=== PATIENT | female | born 2000 | race Caucasian/White ===

== ENCOUNTER 2019-12-22 12:15 | Emergency (ER) | payer OTHER, SELFPAY ==
--- NOTE | ~2019-12-22 | XR_ITS ---
EXAMINATION: XR wrist LT min 3V EXAM DATE: 12/22/2019 13:14 INDICATION: Initial encounter following injury, with pain of the left wrist. TECHNIQUE: Left wrist frontal, frontal with ulnar deviation, oblique and lateral projections obtained and reviewed. There is no prior study for comparison. FINDINGS: Left wrist scapholunate joint space is maintained. There is acute nondisplaced fracture of the distal right radial metaphysis seen along the dorsal aspect without displacement, closed posttra umatic finding. There is overlying soft tissue swelling. This finding has been indicated, marked on t he examination for review, clinical correlation. IMPRESSION: Acute left radial distal metaphyseal fracture. Reviewed, dictated and finalized at location B.
[2019-12-22 12:24] VITALS: BP 134/100; PULSE 110; RESP 18; TEMP 36.8; O2SAT 100
--- NOTE | 2019-12-22 14:59 | ED.UPPEXIN ---
HPI - Extremity Injury (Upper) General Chief Complaint: Extremity Injury, Upper Stated Complaint: fall/wrist injury Time Seen by Provider: 12/22/19 13:18 Source: patient Mode of arrival: ambulatory Limitations: no limitations History of Present Illness HPI narrative: Patient presents with chief complaint of left wrist pain after slipping and falling on milk. Patient states she is not sure exactly how she landed on the wrist. Patient states she has pain with flexion extension of the wrist. Patient denies pain to any other areas. Patient denies head impact or loss of consciousness. Patient denies prior fractures. Patient has a history of epilepsy but denies having any seizures. Related Data Home Medications Medication Instructions Recorded Confirmed cannabidiol [Epidiolex] 12/22/19 carbamazepine mg PO 12/22/19 clonazepam 0.5 mg PO HS 12/22/19 clorazepate dipotassium 12/22/19 lamotrigine 12/22/19 Allergies Allergy/AdvReac Type Severity Reaction Status Date / Time amoxicillin Allergy Intermediate Unknown Verified 12/22/19 12:27 Penicillins Allergy Intermediate Hives / Verified 12/22/19 12:27 Red Face clarithromycin Allergy Unknown HIVES, Verified 12/22/19 12:27 FACIAL SWELLING, WHEEZING fexofenadine [From Yee] AdvReac Intermediate Agitated Verified 12/22/19 12:38 SEASONAL Allergy Mild Unknown Uncoded 12/22/19 12:27 Review of Systems Review of Systems: Narrative: CONSTITUTIONAL: Denies fever, chills, or sweats. EYES: Denies visual changes, redness, or discharge. ENT: Denies rhinorrhea, congestion, sore throat, or otalgia. CARDIOVASCULAR: Denies chest pain, palpitations, or edema. RESPIRATORY: Denies cough or dyspnea. GASTROINTESTINAL: Denies abdominal pain, nausea, vomiting, or diarrhea. GENITOURINARY: Denies dysuria or hematuria. SKIN: Denies rash or itching. MUSCULOSKELETAL: Reports left wrist pain denies back pain, joint pain, or myalgia. NEUROLOGIC: Denies headache, numbness, dizziness, or weakness. PSYCHIATRIC: Denies anxiety or depression. [facility] Past Medical History Medical History (Updated 12/22/19 @ 15:34 by Yelitza Pearce PA-C) Epilepsy Social History Social History (Updated 12/22/19 @ 15:05 by Yelitza Pearce PA-C) Substance use: never Gender identity (if verbalized by the patient): Female Exam Narrative: Exam Narrative: GENERAL: Well-appearing, well-nourished, and in no acute distress. HEAD: Normocephalic, atraumatic. EYES: PERRLA and EOMI. NECK: Supple. No adenopathy or masses. Range of motion intact. CHEST:No respiratory distress. ABDOMEN: Soft, nontender, nondistended, normal active bowel sounds. EXTREMITIES: Edema noted with tenderness to radial aspect of left wrist. No open wounds. Pain with flexion and extension of wrist. Cap refill intact distally with ROM intact distally. SKIN: Warm, dry, no rash. NEURO: No focal deficits. Alert and oriented x3. PSYCH: Normal mood and affect. Course Vital Signs Vital signs: Vital Signs Temperature 98.2 F 12/22/19 12:24 Pulse Rate 110 H 12/22/19 12:24 Respiratory Rate 18 12/22/19 12:24 Blood Pressure 134/100 H 12/22/19 12:24 Pulse Oximetry 100 12/22/19 12:24 Temperature 98.2 F 12/22/19 12:24 Pulse Rate 92 12/22/19 15:38 Respiratory Rate 18 12/22/19 15:38 Blood Pressure 128/89 12/22/19 15:38 Pulse Oximetry 93 12/22/19 15:38 Procedures Orthopedic Splinting/Casting Injury #1: Side: left Upper Extremity Injury Location: wrist Upper Extremity Immobilizer: volar splint OCL: short arm Pre-Procedure Neuro Vascular Exam: normal Post-Procedure Neuro Vascular Exam: normal Other Orthopedic Equipment: other (sling) MDM - Extremity Injury (Upper) MDM Narrative Medical decision making narrative: Consult with engine specialist Dr. Hogue who states patient can be placed in a volar short arm and follow-up in the office. Discussed with
[2019-12-22 15:38] VITALS: BP 128/89; PULSE 92; RESP 18; O2SAT 93
== END 2019-12-22 15:43 | disposition home or self-care (01) ==
PROVIDERS: Emergency Provider Emergency Medicine; PCP Nurse Practitioner Family
DX: S59.292A Other physeal fracture of lower end of radius, left arm, initial encounter for closed fracture (principal); G40.909 Epilepsy, unspecified, not intractable, without status epilepticus; W01.0XXA Fall on same level from slipping, tripping and stumbling without subsequent striking against object, initial encounter
CPT/HCPCS: 29125; 73110; 99284; A4565

== ENCOUNTER 2022-09-16 12:46 | Emergency (ER) | payer BC, SELFPAY ==
--- NOTE | ~2022-09-16 | XR_ITS ---
XR foot LT min 3V DATE: 09/16/2022 13:34 INDICATION: Patient fell down steps and rolled foot this morning. Lateral foot pain TECHNIQUE: 4 views COMPARISON: None FINDINGS: No fracture or dislocation, periosteal reaction or bone destruction. IMPRESSION: No fracture or dislocation Reviewed, dictated and finalized at location B. K OUT HAND IMPRESSION: No fracture or dislocation
[2022-09-16 13:26] VITALS: BP 136/72; PULSE 107; RESP 18; TEMP 36.4; O2SAT 100
--- NOTE | 2022-09-16 14:26 | ED.LOWEXIN ---
HPI - Extremity Injury (Lower) General Chief Complaint: Extremity Injury, Lower Stated Complaint: lt ankle injury Time Seen by Provider: 09/16/22 14:26 Source: patient Mode of arrival: ambulatory Limitations: no limitations History of Present Illness HPI Narrative: 22-year-old female presents with pain to left foot. States that she was stepping down from stairs this morning and rolled left foot outward. Arrived using crutches from home. Ambulatory with slight limp. Wants to make sure she does not have fracture and also needs work note. All systems reviewed and negative except as noted above Related Data Home Medications Medication Instructions Recorded Confirmed carbamazepine 200 mg 200 mg PO DAILY 12/22/19 09/16/22 tablet,extended release,12 hr Allergies Allergy/AdvReac Type Severity Reaction Status Date / Time amoxicillin Allergy Intermediate Unknown Verified 09/16/22 14:07 Penicillins Allergy Intermediate Hives / Verified 09/16/22 14:07 Red Face clarithromycin Allergy Unknown HIVES, Verified 09/16/22 14:07 FACIAL SWELLING, WHEEZING fexofenadine [From Yee] AdvReac Intermediate Agitated Verified 09/16/22 14:07 SEASONAL Allergy Mild Unknown Uncoded 09/16/22 14:07 Review of Systems Review of Systems: CONSTITUTIONAL: Denies fever, chills, or sweats. EYES: Denies visual changes, redness, or discharge. ENT: Denies rhinorrhea, congestion, sore throat, or otalgia. CARDIOVASCULAR: Denies chest pain, palpitations, or edema. RESPIRATORY: Denies cough or dyspnea. GASTROINTESTINAL: Denies abdominal pain, nausea, vomiting, or diarrhea. GENITOURINARY: Denies dysuria or hematuria. SKIN: Denies rash or itching. MUSCULOSKELETAL: Denies back pain, joint pain, or myalgia. reports pain to left foot. NEUROLOGIC: Denies headache, numbness, or weakness. PSYCHIATRIC: Denies anxiety or depression. All other systems reviewed are negative, except as documented in HPI. 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 Gender identity (if verbalized by the patient): Female Spiritual care concerns: No Comments At time of signature, agree with nursing past medical, surgical, social and family history. There is no relevant family history pertinent to the presenting complaint. Exam Narrative: GENERAL: This is a well-nourished, well-developed patient, in no apparent distress. HEAD: normocephalic, atraumatic. EYES: PERRL. Sclera clear/white. Vision is grossly intact. EARS: External ears normal NOSE: External nose normal NECK: Neck supple, non-tender without lymphadenopathy, masses or thyromegaly. CARDIOVASCULAR: Regular rate and rhythm without murmurs, gallops, or rubs. RESPIRATORY: Clear to auscultation. Breath sounds equal bilaterally. No wheezes, rales, or rhonchi. SKIN: warm, Dry, intact with no suspicious lesions or rash, good texture and turgor. NEURO: awake, alert, and oriented to person, place and time. There were no obvious focal neurologic abnormalities. EXTREMITIES: tenderness to left dorsal aspect, proximal 3rd 4th 5th metatarsals. Mild swelling noted. No deformity noted. Dorsalis pedis pulse 2 +. Range of motion in tact pain Course Course Level of Care: Express Care Visit Vital Signs Vital signs: Vital Signs Temperature 36.4 C L 09/16/22 13:26 Pulse Rate 107 H 09/16/22 13:26 Respiratory Rate 18 09/16/22 13:26 Blood Pressure 136/72 09/16/22 13:26 Pulse Oximetry 100 09/16/22 13:26 Oxygen Deliv
== END 2022-09-16 14:40 | disposition home or self-care (01) ==
PROVIDERS: Emergency Provider Nurse Practitioner Family; PCP Nurse Practitioner Family
DX: S93.602A Unspecified sprain of left foot, initial encounter (principal); X50.0XXA Overexertion from strenuous movement or load, initial encounter
CPT/HCPCS: 73630; 99213; G0463

== ENCOUNTER 2022-11-10 11:34 | Emergency (ER) | payer BC, SELFPAY ==
[2022-11-10 11:57] VITALS: BP 146/84; PULSE 120; RESP 18; TEMP 36.8; O2SAT 100
--- NOTE | 2022-11-10 12:41 | ED.URI ---
HPI - URI/Sore Throat General Chief Complaint: Upper Respiratory Infection Stated Complaint: cough,sorethroat,congestion Time Seen by Provider: 11/10/22 11:47 Source: patient Mode of arrival: ambulatory Limitations: no limitations History of Present Illness HPI Narrative: 22-year-old female presents to [facility] with complaints of dry cough, runny nose, congestion, sore throat and low-grade fevers for the past 3 days. 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 Patient has been taking [id number] Delsym, Benadryl and Tylenol with minimal relief. Patient is a nonsmoker. Patient denies recent travel. Patient denies shortness of breath, wheezing, nausea, vomiting or diarrhea. MD elicited complaint: cough, sore throat, rhinorrhea and nasal congestion Onset (ago): day(s) (3) Able to tolerate fluids by mouth: Yes Treatments prior to arrival: cold medicine Related Data Home Medications Medication Instructions Recorded Confirmed carbamazepine 200 mg 200 mg PO DAILY 12/22/19 11/10/22 tablet,extended release,12 hr cannabidiol 100 mg/mL oral 100 mg PO DAILY 09/16/22 11/10/22 solution (Epidiolex) Allergies Allergy/AdvReac Type Severity Reaction Status Date / Time amoxicillin Allergy Intermediate Unknown Verified 09/16/22 14:07 Penicillins Allergy Intermediate Hives / Verified 09/16/22 14:07 Red Face clarithromycin Allergy Unknown HIVES, Verified 09/16/22 14:07 FACIAL SWELLING, WHEEZING fexofenadine [From Yee] AdvReac Intermediate Agitated Verified 09/16/22 14:07 SEASONAL Allergy Mild Unknown Uncoded 09/16/22 14:07 Review of Systems Constitutional: Constitutional: Reports chills, Denies fatigue, Reports fever(s) and Denies weakness ENT: Denies dizziness, Denies epistaxis, Reports nasal congestion and Reports sore throat Respiratory: Respiratory: Reports cough, Denies dyspnea and Denies wheezing Gastrointestinal: Gastrointestinal: Denies diarrhea, Denies nausea and Denies vomiting Musculoskeletal: Musculoskeletal: Denies arthralgias and Denies joint swelling Integumentary/Breasts: Skin/Breast: Denies rash PMFSH Past Medical History Medical History (Updated 11/10/22 @ 12:44 by Keysha Richmond APRN) Distal radius fracture, left (12/22/19) Epilepsy Psoriasis Family History Family History Other Diabetes mellitus Social History Social History Smoking status: Never smoker Alcohol intake: never Substance use: never Living arrangements: with family Occupation/Education: occupation 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 Gender identity (if verbalized by the patient): Female Spiritual care concerns: No Comments At time of signature, I agree with nursing past medical, surgical, social and family history. There is no relevant family history pertinent to the presenting complaint. Exam Const: General: healthy appearing and no acute distress Nutritional Appearance: well nourished Orientation/consciousness: patient oriented x3 Limitations: no limitations HENMT: Head: normal to inspection Ears: external ears normal and EAC's normal Face/Nose/Sinus: Normal external nose present and Normal nares present Face and sinus: normal facial exam Mouth: Yes Normal oral and palatal mucosa present and Yes moist mucous membranes Throat: posterior oropharynx normal and uvula midline Eyes: Conjunctivae: conjunctivae normal Neck: Neck: normal visual inspection Resp: Effort & Inspection: normal respiratory effort, not labored and not tachypneic Auscultation: no crackles, no rales and no rhonchi Cardio: Rate: regular rate Rhythm: regular rhythm Heart sounds: no murmurs Skin: General skin exam: normal color Rashes: no rashes Neuro: General: patient oriented x3 S
== END 2022-11-10 12:58 | disposition home or self-care (01) ==
PROVIDERS: Emergency Provider Nurse Practitioner Family; PCP Nurse Practitioner Family
DX: B34.9 Viral infection, unspecified (principal); L40.9 Psoriasis, unspecified; G40.909 Epilepsy, unspecified, not intractable, without status epilepticus
CPT/HCPCS: 87081; 87804; 87880; 99213; G0463

== ENCOUNTER 2022-11-16 09:02 | Emergency (ER) | payer BC, SELFPAY ==
[2022-11-16 09:28] VITALS: BP 140/68; PULSE 114; RESP 18; TEMP 37.2; O2SAT 100
--- NOTE | 2022-11-16 09:51 | ED.GENADULT ---
HPI - General Adult General Chief complaint: Upper Respiratory Infection Stated complaint: sorethroat,fever Time Seen by Provider: 11/16/22 09:51 Source: patient Mode of arrival: ambulatory Limitations: no limitations History of Present Illness HPI narrative: 22-year-old female patient presents to the [facility] with complaints of sore throat, fever, body aches and chills that started last night. Patient does have a history of epilepsy and thinks she might have had a seizure last night denies hitting her head. denies any cough, chest pain shortness of breath. Patient states she has had some congestion. Denies any abdominal pain, nausea, vomiting or diarrhea. Related Data Home Medications Medication Instructions Recorded Confirmed carbamazepine 200 mg 200 mg PO DAILY 12/22/19 11/16/22 tablet,extended release,12 hr cannabidiol 100 mg/mL oral 100 mg PO DAILY 09/16/22 11/16/22 solution (Epidiolex) Allergies Allergy/AdvReac Type Severity Reaction Status Date / Time amoxicillin Allergy Intermediate Unknown Verified 11/16/22 09:47 Penicillins Allergy Intermediate Hives / Verified 11/16/22 09:47 Red Face clarithromycin Allergy Unknown HIVES, Verified 11/16/22 09:47 FACIAL SWELLING, WHEEZING fexofenadine [From Yee] AdvReac Intermediate Agitated Verified 11/16/22 09:47 SEASONAL Allergy Mild Unknown Uncoded 11/16/22 09:47 Review of Systems Review of Systems: CONSTITUTIONAL: Positive fever, chills, or sweats. EYES: Denies visual changes, redness, or discharge. ENT: Denies rhinorrhea, positive congestion, positive sore throat, denies otalgia. CARDIOVASCULAR: Denies chest pain, palpitations, or edema. RESPIRATORY: Denies cough or dyspnea. GASTROINTESTINAL: Denies abdominal pain, nausea, vomiting, or diarrhea. GENITOURINARY: Denies dysuria or hematuria. SKIN: Denies rash or itching. MUSCULOSKELETAL: Denies back pain, joint pain, or myalgia. NEUROLOGIC: Denies headache, numbness, or weakness. PSYCHIATRIC: Denies anxiety or depression. 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 Gender identity (if verbalized by the patient): Female Spiritual care concerns: No Comments At the time of my signature I agree with nursing past medical history, surgical, social, and family history. There is no relevant family history pertinent to the presenting complaint. Exam Narrative: GENERAL: Well-appearing, well-nourished, and in no acute distress. HEAD: Normocephalic, atraumatic. EYES: PERRLA and EOMI. ENT: Nares with erythema edema noted bilaterally, no rhinorrhea or epistaxis. Mucous membranes moist. fluid noted behind bilateral TMs on exam. No erythema or foreign body in the canal. Posterior pharynx with erythema noted no exudates or lesions present. No tonsillar enlargement noted. NECK: Supple. No lymphadenopathy CHEST: Clear to auscultation. No respiratory distress. HEART: Regular rate and rhythm. No murmur heard. Normal peripheral pulses. ABDOMEN: Soft, nontender, nondistended, normal active bowel sounds. EXTREMITIES: Normal range of motion. No edema. SKIN: Warm, dry, no rash. NEURO: No focal deficits. Alert and oriented x3. Course Course Level of Care: Express Care Visit Reevaluation(s) Reevaluation #1: re-evaluated patient notify her that she is positive for strep today. We will discharge her home with oral antibiotics and give her tomorrow off
== END 2022-11-16 10:17 | disposition home or self-care (01) ==
PROVIDERS: Emergency Provider Nurse Practitioner Family; PCP Nurse Practitioner Family
DX: J02.0 Streptococcal pharyngitis (principal); Z20.822 Contact with and (suspected) exposure to COVID-19; G40.909 Epilepsy, unspecified, not intractable, without status epilepticus; L40.9 Psoriasis, unspecified
CPT/HCPCS: 87426; 87804; 87880; 99213; C9803; G0463

== ENCOUNTER 2023-05-14 17:04 | Emergency (ER) | payer BC, SELFPAY ==
[2023-05-14 17:12] VITALS: BP 135/78; PULSE 100; RESP 18; TEMP 36.4; O2SAT 99
--- NOTE | 2023-05-14 17:12 | ED.URI ---
HPI - URI/Sore Throat General Chief Complaint: Upper Respiratory Infection Stated Complaint: Cough Time Seen by Provider: 05/14/23 17:12 Source: patient, RN notes reviewed and old records reviewed Mode of arrival: ambulatory Limitations: no limitations History of Present Illness HPI Narrative: 22-year-old female with a history of epilepsy and asthma presents to [facility] with complaints of a cough that started over 1 week ago. Reports a dry nonproductive cough. Denies any fevers. Denies any her symptoms. Denies chest pain or pain. Has been using [id number] cold medicine, her inhaler, nebulizer as well as using Flonase and taking allergy medication with no relief. States over last couple days has gotten worse. Onset (ago): week(s) (1-2) Treatments prior to arrival: cold medicine Related Data Home Medications Medication Instructions Recorded Confirmed carbamazepine 200 mg 200 mg PO DAILY 12/22/19 05/14/23 tablet,extended release,12 hr cannabidiol 100 mg/mL oral 100 mg PO DAILY 09/16/22 05/14/23 solution (Epidiolex) albuterol sulfate 90 mcg/actuation 2 puff inhalation PRN PRN Wheezing 05/14/23 05/14/23 aerosol inhaler Allergies Allergy/AdvReac Type Severity Reaction Status Date / Time amoxicillin Allergy Intermediate Unknown Verified 05/14/23 17:23 Penicillins Allergy Intermediate Hives / Verified 11/16/22 09:47 Red Face clarithromycin Allergy Unknown HIVES, Verified 11/16/22 09:47 FACIAL SWELLING, WHEEZING fexofenadine [From Yee] AdvReac Intermediate Agitated Verified 11/16/22 09:47 SEASONAL Allergy Mild Unknown Uncoded 11/16/22 09:47 Review of Systems Review of Systems: All systems reviewed & are unremarkable except as noted in HPI and below Constitutional: Constitutional: Reports no additional constitutional complaints Eyes: Eyes: Reports no additional eye complaints ENT: Reports system reviewed and no additional complaints, except as documented Cardiovascular: Cardiovascular: Reports no additional cardiovascular complaints, Denies chest pain and Denies dyspnea Respiratory: Respiratory: Reports as per HPI, Denies chest congestion, Reports cough, Denies dyspnea and Denies wheezing Gastrointestinal: Gastrointestinal: Reports no additional gastrointestinal complaints, Denies abdominal pain, Denies nausea and Denies vomiting Musculoskeletal: Musculoskeletal: Reports no additional musculoskeletal complaints Integumentary/Breasts: Skin/Breast: Reports system reviewed and no additional complaints, except as docu Neurologic: Reports system reviewed and no additional complaints, except as documented Psychiatric: Psychiatric: Reports no additional psychiatric complaints Allergic/Immunologic: Allergic/Immunologic: Reports no additional allergic/immunologic complaints PMFSH Past Medical History Medical History Distal radius fracture, left (12/22/19) Epilepsy Psoriasis Family History Family History Other Diabetes mellitus Social History Social History Smoking status: Never smoker Alcohol intake: never Substance use: never Living arrangements: with family Occupation/Education: occupation 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 Gender identity (if verbalized by the patient): Female Spiritual care concerns: No Comments At the time of my signature, I reviewed and agree with the nursing past medical, surgical, social, and family history. There is no relevant family history pertinent to the patient complaint. Exam Const: General: cooperative, healthy appearing, comfortable, no acute distress, well developed, alert and well nourished Nutritional Appearance: well nourished Orientation/consciousness: patient oriented x3 Limitations: no limitations HEN
== END 2023-05-14 17:28 | disposition home or self-care (01) ==
PROVIDERS: Emergency Provider Nurse Practitioner; PCP Nurse Practitioner Family
DX: J40 Bronchitis, not specified as acute or chronic (principal); G40.909 Epilepsy, unspecified, not intractable, without status epilepticus; L40.9 Psoriasis, unspecified; J45.909 Unspecified asthma, uncomplicated
CPT/HCPCS: 99213; G0463

== ENCOUNTER 2023-05-30 17:33 | Observation (INO) | payer BC, SELFPAY ==
[2023-05-30] VITALS (20 sets, daily range): BP systolic 112–135; BP diastolic 71–101; PULSE 126–158; RESP 18–31; TEMP 36.8–37.2; O2SAT 95–100; BMI 39.6
--- NOTE | ~2023-05-30 | CT_ITS ---
EXAMINATION: CTA chest PE protocol DATE: 05/30/2023 20:11 INDICATION: Tachycardia and shortness of breath TECHNIQUE: Computed tomography angiography (CTA) of the chest was performed with 100 mL Omnipaque-350 intravenous contrast timed to evaluate the pulmonary arteries. Coronal maximum intensity projection 3D-reconstructions were created by the technologist. The dose-length product (DLP) was 595.78 mGy-cm. Automated exposure control and iterative reconstruction technique were employed. COMPARISON: None. FINDINGS: There is fair opacification of the pulmonary arteries. There is moderate respiratory motion artifact. No central pulmonary embolus is identified. There are airspace opacities in the right lowe r lobe. There is mild atelectasis of both lower lobes. The heart size is normal. There is a small sli ding hiatal hernia. An electronic device is implanted in a subpectoral location of the left chest wal l. Its lead courses in the right neck beyond the superior margin of the CT. IMPRESSION: 1. Right lower lobe airspace opacities, consistent with pneumonia. 2. No pulmonary embolus identified, sensitivity limited by respiratory motion and fair contrast opaci fication. Reviewed, dictated and finalized at location F. IMPRESSION: 1. Right lower lobe airspace opacities, consistent with pneumonia. 2. No pulmonary embolus identified, sensitivity limited by respiratory motion a nd fair contrast opacification.
--- NOTE | ~2023-05-30 | XR_ITS ---
EXAMINATION: XR chest 1V portable INDICATION: Bronchitis TECHNIQUE: Portable AP chest at 1755 hours COMPARISON: 01/03/2004 FINDINGS: There are minimal airspace opacities of the right lung base. No pleural effusion or pneumot horax. The cardiomediastinal silhouette is normal. An implanted electronic device projects over the l eft lateral chest wall with a lead coursing beyond the superior margin of the radiograph. IMPRESSION: 1. Minimal right basilar airspace opacity, consistent with atelectasis versus pneumonia. Reviewed, dictated and finalized at location F. IMPRESSION: 1. Minimal right basilar airspace opacity, consistent with atelectasis versus p neumonia.
[2023-05-30] MEDS: LEVALBUTEROL NEB 1.25 MG/3 ML 2.5 MG INHALATION ×2 (18:36→19:50)
[2023-05-30] MEDS: SODIUM CHLORIDE 0.9% IV 1,000 ML 999 ML IV CONT ×2 (18:39→22:01)
[2023-05-30] MEDS: methylPREDNISolone SOD SUCC 125 MG VIAL IV PUSH (18:39)
--- NOTE | 2023-05-30 18:44 | ED.GENADULT ---
HPI - General Adult General Chief complaint: Shortness of Breath/Dyspnea Stated complaint: sob Time Seen by Provider: 05/30/23 17:42 History of Present Illness HPI narrative: 22-year-old female presenting to the emergency department for evaluation of worsening shortness of breath. Patient does have a history of asthma. Patient was started on prednisone and doxycycline week ago but still has worsening symptoms. Patient did have multiple breathing treatments prior to arrival and was tachycardic upon arrival to the ED. Patient states she did have improvement of her symptoms patient denies any associate chest pain. Patient has no prior history of PE or DVT. Patient has never had to be hospitalized for her asthma and has not been intubated. Patient does have history of seizures and does have a VNS. Related Data Home Medications Medication Instructions Recorded Confirmed carbamazepine 200 mg 200 mg PO DAILY 12/22/19 05/14/23 tablet,extended release,12 hr cannabidiol 100 mg/mL oral 100 mg PO DAILY 09/16/22 05/14/23 solution (Epidiolex) albuterol sulfate 90 mcg/actuation 2 puff inhalation PRN PRN Wheezing 05/14/23 05/14/23 aerosol inhaler Allergies Allergy/AdvReac Type Severity Reaction Status Date / Time amoxicillin Allergy Intermediate Unknown Verified 05/30/23 17:42 Penicillins Allergy Intermediate Hives / Verified 05/30/23 17:42 Red Face clarithromycin Allergy Unknown HIVES, Verified 05/30/23 17:42 FACIAL SWELLING, WHEEZING fexofenadine [From Yee] AdvReac Intermediate Agitated Verified 05/30/23 17:42 SEASONAL Allergy Mild Unknown Uncoded 05/30/23 17:42 Review of Systems Review of Systems: All systems reviewed & are unremarkable except as noted in HPI and below PMFSH Past Medical History Medical History (Updated 05/30/23 @ 21:17 by Sigifredo Madison MD) Distal radius fracture, left (12/22/19) Epilepsy Psoriasis Family History Family History Other Diabetes mellitus Social History Social History Smoking status: Never smoker Alcohol intake: never Substance use: never Living arrangements: with family Occupation/Education: occupation 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 Gender identity (if verbalized by the patient): Female Spiritual care concerns: No Exam Narrative: APPEARANCE: Well appearing, no pain, no distress, well-nourished. HEAD: normocephalic, atraumatic. EYES: PERRLA/EOMI, conjunctivae clear. NOSE: Normal no drainage NECK: Supple. No adenopathy, no masses. RESPIRATORY: Decreased breath sounds bilaterally in the lower lobes, wheeze in upper lobe CARDIOVASCULAR: Regular rate and rhythm without murmurs rubs or gallops. ABDOMINAL: Soft, nontender, nondistended, normal bowel sounds MUSCULOSKELETAL: Moves all extremities. Strength/ROM intact, No edema, No calf tenderness. NEURO: Alert. Cranial nerves II through XII intact. Grossly intact SKIN: Warm, dry. Normal Color Course Course Emergency Course: 22-year-old female presented the ED for evaluation of worsening shortness of breath and wheeze. Chest x-ray was concerning for right-sided pneumonia. CTA PE study was ordered to rule out pulmonary embolism with the patient's tachycardia and shortness of breath. CT scan showed no evidence of pulm embolism but did show a right-sided pneumonia. Patient did feel improved regarding her shortness of breath with 2 treatments of Xopenex. Patient was afebrile but does have a leukocytosis of 18.4. Patient has had recent steroid treatment. Patient was tachycardic with a heart rate of the 150s and had no significant improvement with IV rehydration. Patient was negative for COVID RSV influenza. Patient had been on doxycycline as outpatient. Patient has underlying penicillin allergy and was started on Levaquin
[2023-05-30 18:45] LABS: Influenza A QL RT-PCR Negative (Negative); Influenza B QL RT-PCR Negative (Negative); RSV RNA, RT-PCR Negative (Negative); SARS-CoV-2 RNA PCR Negative (Negative)
[2023-05-30 18:50] LABS: Basophils Absolute Auto 0.1 K/mm3 (0.0-0.1); Basophils Percent Auto 0.3 % (0.2-1.2); Eosinophils Absolute Auto 0.1 K/mm3 (0-0.3); Eosinophils Percent Auto 0.5 % (0-4.4); Hematocrit 44.9 % (37.0-47.0); Hemoglobin 14.7 g/dL (12.0-15.0); Immature Granulocyte Absolute 0.08 K/mm3 (0.00-0.031); Immature Granulocyte Percent A 0.4 % (0-0.5); Lymphocytes Absolute Auto 1.29 K/mm3 (0.9-3.2); Mean Corpuscular HGB Conc 32.7 g/dl (32-36); Mean Corpuscular Hemoglobin 29.3 pg (26-34); Mean Corpuscular Volume 89.6 fl (80-100); Mean Platelet Volume 9.3 fl (7.4-10.4); Monocytes Absolute Auto 1.1 K/mm3 (0.1-0.6); Monocytes Percent Auto 6.1 % (2.6-8.5); Neutrophils Absolute Auto 15.7 K/mm3 (1.3-6.7); Neutrophils Percent Auto 85.7 % (45.5-73.1); Platelet Count Result 255 k/mm3 (150-375); Red Blood Count 5.01 M/mm3 (4.2-5.4); Red Cell Distribution Width 13.2 % (11.5-14.5); White Blood Count 18.4 K/mm3 (4.5-10.0)
[2023-05-30 18:56] LABS: Alanine Aminotransferase 34 U/L (6-35); Albumin Level 4.7 g/dL (3.5-5.1); Alkaline Phosphatase 86 U/L (38-126); Anion Gap 8 mmol/L (8-16); Aspartate Amino Transferase 27 U/L (14-36); Bilirubin,Total 0.6 mg/dL (0.2-1.3); Blood Urea Nitrogen 7 mg/dL (7-17); Carbon Dioxide 23 mmol/L (22-30); Chloride 103 mmol/L (98-107); Estimated Glomerular Filt Rate > 60; Glucose 114 mg/dL (65-110); Potassium 3.7 mmol/L (3.4-5.0); Sodium 134 mmol/L (137-145)
--- NOTE | 2023-05-30 21:26 | ECG_ITS ---
Measurements Intervals [place] Rate: 133 P: 26 NC: 153 QRS: 19 QRSD: 78 T: 29 QT: 331 QTc: 493 Interpretive Statements SINUS TACHYCARDIA OTHERWISE NORMAL ELECTROCARDIOGRAM NO PREVIOUS ECG AVAILABLE FOR COMPARISON Electronically Signed On 05-31-2023 11:47:52 CDT by Victor Hugo Pearce M.D.
--- NOTE | 2023-05-30 21:58 | PM.IMHP ---
H&P: HPI History of Present Illness Date/Time: 05/30/23 21:58 Chief Complaint: Cough for 3 weeks Narrative: 22-year-old female with a past medical history of asthma, epilepsy, vagal nerve stimulator and obesity who presented to the ER from home via private vehicle due to cough for 3 weeks. Patient and her mother help provide history with patient's permission. 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 The patient herself was evaluated in urgent care 2 weeks ago was diagnosed with bronchitis and placed on antibiotics and steroids. She was placed on a 5 day steroid burst on the 14 of May. She was treated with doxycycline. She completed her antibiotics and steroids. However her cough has persisted. Today the patient noticed that her sputum had changed from yellow to green. Her cough is also been getting worse over the last couple of days. She denies any fevers or chills. She has been having some post tussive emesis at times. She denies any changes in bowel habits. She has not been having any urinary symptoms. She denies any leg swelling or pain. She is noted to be markedly tachycardic in the ER. The patient's mother reports the patient is usually bradycardic and often times her heart rate will drop to the 40s and 50s while she sleeping. The patient had had a sleep study about 10 years ago. But the patient was not morbidly obese at that time. 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 She has developed obesity since she was started on epidiolex. But this medication has given her significant improvement in her epilepsy symptoms. She has not had a breakthrough seizure in several months. She does fall asleep randomly oral watching TV during the day. She does snore. Her mother is concerned that she may have a breakthrough seizure due to how ill she is. On arrival to the ER the patient's heart rate was in the 120s to 130s. Her heart rate did get up into the 150s to 160s with activity. EKG confirmed sinus rhythm. Although the family reports that the patient is usually bradycardic on review of patient's chart any time she has had contact with medical system her heart rate is usually between 90 and low 110's. In the ER S CT of the chest was performed which ruled out pulmonary embolism. CT did confirm right lower lobe pneumonia. Review of Systems Review of Systems: 12 systems were reviewed with pertinent positives and negatives per HPI. Except as documented in the HPI, all other systems were reviewed and are negative. 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 With history of bilateral eye surgery Distal radius fracture, left (12/22/19) Epilepsy Psoriasis Ruptured or perforated eardrum Bilateral with the ruptured eardrum on the left being chronic Surgical History Surgical History (Updated 05/31/23 @ 02:34 by Amirah Peterson DO) History of tonsillectomy and adenoidectomy History of tympanostomy tube placement Bilateral x3 Status post VNS (vagus nerve stimulator) placement With initial placement in 2016 but she had a fractured lead and required a new device placement in 2020 Family History Family History (Updated 05/31/23 @ 03:00 by Amirah Peterson DO) Mother Type 1 diabetes mellitus Morbid obesity Grandparent Diabetes mellitus Social History Social History (Updated 05/31/23 @ 02:38 by Amirah Peterson DO) Social History: Code status: Full code Surrogate decision maker: Mother Smoking status: Never smoker Alcohol intake: never Substance use: never Lack of Transportation: No Lack of Food: Never True Current Housing: I Have Housing Concerned About Future Housing: No Difficulty Paying Gas/Electric Bills: No Difficulty Paying for Meds: No Curre
[2023-05-30] MEDS: levoFLOXacin 750 MG/D5W 150 ML 750 MG/150 ML BAG 100 MG IVPB (22:00)
[2023-05-30 22:15] LABS: Lactic Acid Reflex 3.6 mmol/L (0.7-2.0)
[2023-05-30 22:34] LABS: Procalcitonin 0.1 ng/mL
--- NOTE | 2023-05-30 23:20 | ADMGEN ---
This patient, Aftab Davies, was admitted to Medical Room 253-01. Patient/family oriented to hospital policies and general routines including ID bracelet, bed and alarms, visiting hours, pain management, procedures, bathroom and other care routines, personal items, smoking policy, room service/diet, and visiting hours. Information on how to activate the Rapid Response Team has been discussed. Patient/Family are encouraged to report perceived risks to care and to ask questions if they do not understand what they are told or what they should do.
[2023-05-31] VITALS (10 sets, daily range): BP systolic 119; BP diastolic 57; PULSE 95–140; RESP 20; TEMP 37; O2SAT 94–98
[2023-05-31] MEDS: IPRATROPIUM BR 0.02% INH SOLN 0.5 MG/2.5 ML VIAL 2 MG INHALATION (00:16)
[2023-05-31] MEDS: LEVALBUTEROL NEB 1.25 MG/3 ML 5 MG INHALATION (00:17)
[2023-05-31 00:46] LABS: Strep Group A RT-PCR NOT DETECTED (Negative)
[2023-05-31 00:54] LABS: Reflex Lactic Acid Yes or No Add Lactic
--- NOTE | 2023-05-31 00:57 | PHAR ---
PHARMACY VERIFIED HOME MED: EPIDIOLEX (CANNABIDIOL - CBD) ORAL SOLUTION 100 MG/ML TAKE 4 ML BY MOUTH TWICE DAILY
[2023-05-31] MEDS: guaiFENesin 600 MG/DEXTROMETHORPHAN 30 MG SR TAB 12 HR 1 TAB PO ×2 (02:13→09:24)
[2023-05-31] MEDS: SODIUM CHLORIDE 0.9% IV 1,000 ML 999 ML IV CONT (02:14)
[2023-05-31] MEDS: SODIUM CHLORIDE 0.9% IV 1,000 ML 100 ML IV CONT (03:26)
[2023-05-31 04:37] LABS: Basophils Percent Auto 0.2 % (0.2-1.2); Hemoglobin 12.3 g/dL (12.0-15.0); Immature Granulocyte Absolute 0.09 K/mm3 (0.00-0.031); Immature Granulocyte Percent A 0.5 % (0-0.5); Lymphocytes Percent Auto 8.8 % (18.3-44.2); Mean Corpuscular HGB Conc 31.5 g/dl (32-36); Mean Corpuscular Hemoglobin 29.6 pg (26-34); Mean Platelet Volume 9.1 fl (7.4-10.4); Monocytes Absolute Auto 1.1 K/mm3 (0.1-0.6); Monocytes Percent Auto 6.4 % (2.6-8.5); Neutrophils Absolute Auto 14.4 K/mm3 (1.3-6.7); Neutrophils Percent Auto 84.1 % (45.5-73.1); Platelet Count Result 212 k/mm3 (150-375); Red Blood Count 4.15 M/mm3 (4.2-5.4); Red Cell Distribution Width 13.2 % (11.5-14.5); White Blood Count 17.1 K/mm3 (4.5-10.0)
[2023-05-31 04:54] LABS: Anion Gap 15 mmol/L (8-16); Blood Urea Nitrogen 5 mg/dL (7-17); Calcium 8.2 mg/dL (8.4-10.2); Carbon Dioxide 20 mmol/L (22-30); Chloride 104 mmol/L (98-107); Estimated Glomerular Filt Rate > 60; Glucose 109 mg/dL (65-110); Potassium 3.7 mmol/L (3.4-5.0); Sodium 139 mmol/L (137-145)
[2023-05-31] MEDS: SODIUM CHLOR 3% 15 ML NEB (RESPIRATORY THERAPY) 6 ML INHALATION (07:51)
[2023-05-31] MEDS: LEVALBUTEROL NEB 1.25 MG/3 ML INHALATION (08:30)
[2023-05-31] MEDS: IPRATROPIUM BR 0.02% INH SOLN 0.5 MG/2.5 ML VIAL INHALATION (08:30)
[2023-05-31] MEDS: CARBAMAZEPINE XR 200 MG TAB.ER.12H PO (09:24)
[2023-05-31] MEDS: LORATADINE 10 MG TABLET PO (09:24)
[2023-05-31] MEDS: FLUTICASONE PROPIONATE 0.05% NA SPR 16 GM BTL (*BKC) 2 SPRAY NASAL (09:24)
[2023-05-31] MEDS: ENOXAPARIN 40 MG/0.4 ML SYRINGE SUB-Q (09:25)
--- NOTE | 2023-05-31 10:12 | PM.DS ---
DS: Admitting Diagnosis Discharge Date 05/31/2023 Admitting Diagnosis Community-acquired pneumonia DS: Discharge Diagnosis Discharge Diagnosis (1) Community acquired pneumonia: Qualifiers: Laterality: right Lung location: lower lobe of lung Qualified Code(s): J18.9 - Pneumonia, unspecified organism Code(s): J18.9 - Pneumonia, unspecified organism Status: Acute DS: Summary Hospital Course Hospital Course: 22-year-old female with a past medical history of asthma, epilepsy, vagal nerve stimulator and obesity who presented to the ER from home via private vehicle due to cough for 3 weeks.? On arrival to the ER the patient's heart rate was in the 120s to 130s.? Her heart rate did get up into the 150s to 160s with activity.? EKG confirmed sinus rhythm.? In the ER S CT of the chest was performed which ruled out pulmonary embolism.? CT did confirm right lower lobe pneumonia. Given patient's allergy to penicillins she was started on IV Levaquin. She is stable this morning. She will be discharged home with oral Levaquin Time Spent with Patient Time attestation: Total time spent providing and/or coordinating discharge services: DS: Data Data Completed and Pending Labs on day of discharge: Labs from last 24 hours 05/31/23 05/31/23 05/31/23 04:23 01:06 00:14 WBC 17.1 H RBC 4.15 L Hgb 12.3 Hct 39.0 MCV 94.0 MCH 29.6 MCHC 31.5 L RDW 13.2 Plt Count 212 MPV 9.1 Immature Gran % (Auto) 0.5 Neut % (Auto) 84.1 H Lymph % (Auto) 8.8 L [place] % (Auto) 6.4 Eos % (Auto) 0.0 Baso % (Auto) 0.2 Lymph # (Auto) 1.50 [place] # (Auto) 1.1 H Eos # (Auto) 0.0 Baso # (Auto) 0.0 Abs Immat Gran (auto) 0.09 H Absolute Neuts (auto) 14.4 H Absolute Nucleated RBC 0.0 Nucleated RBC % 0.0 Sodium 139 Potassium 3.7 Chloride 104 Carbon Dioxide 20 L Anion Gap 15 BUN 5 L Creatinine 0.60 L Estim Creat Clear Calc Not Reportable Estimated GFR > 60 Glucose 109 Lactic Acid 4.0 H Calcium 8.2 L Total Bilirubin AST ALT Alkaline Phosphatase Total Protein Albumin Procalcitonin Influenza A (RT-PCR) Influenza B (RT-PCR) Ur L.pneumophila Ag M.pneumoniae DNA (PCR) Pending RSV (RT-PCR) SARS-CoV-2 RNA (RT-PCR) Group A Strep (PCR) Urine Pneumococcal Ag 05/31/23 05/30/23 05/30/23 00:13 21:42 18:35 WBC 18.4 H RBC 5.01 Hgb 14.7 Hct 44.9 MCV 89.6 MCH 29.3 MCHC 32.7 RDW 13.2 Plt Count 255 MPV 9.3 Immature Gran % (Auto) 0.4 Neut % (Auto) 85.7 H Lymph % (Auto) 7.0 L [place] % (Auto) 6.1 Eos % (Auto) 0.5 Baso % (Auto) 0.3 Lymph # (Auto) 1.29 [place] # (Auto) 1.1 H Eos # (Auto) 0.1 Baso # (Auto) 0.1 Abs Immat Gran (auto) 0.08 H Absolute Neuts (auto) 15.7 H Absolute Nucleated RBC 0.0 Nucleated RBC % 0.0 Sodium 134 L Potassium 3.7 Chloride 103 Carbon Dioxide 23 Anion Gap 8 BUN 7 Creatinine 0.70 Estim Creat Clear Calc Not Reportable Estimated GFR > 60 Glucose 114 H Lactic Acid 3.6 H Calcium 9.0 Total Bilirubin 0.6 AST 27 ALT 34 Alkaline Phosphatase 86 Total Protein 8.0 Albumin 4.7 Procalcitonin 0.1 Influenza A (RT-PCR) Influenza B (RT-PCR) Ur L.pneumophila Ag Pending M.pneumoniae DNA (PCR) RSV (RT-PCR) SARS-CoV-2 RNA (RT-PCR) Group A Strep (PCR) Not detected Urine Pneumococcal Ag Pending 05/30/23 18:05 WBC RBC Hgb Hct MCV MCH MCHC RDW Plt Count MPV Immature Gran % (Auto) Neut % (Auto) Lymph % (Auto) [place] % (Auto) Eos % (Auto) Baso % (Auto) Lymph # (Auto) [place] # (Auto) Eos # (Auto) Baso # (Auto) Abs Immat Gran (auto) Absolute Neuts (auto) Absolute Nucleated RBC Nucleated RBC % Sodium Potassium Chloride Carbon Dioxide Anion Gap BUN Creatinine Estim Creat Clear
[2023-06-04 03:56] LABS: Legionella pneumophila Ag Ur Not Detected (Not Detected)
[2023-06-04 05:19] LABS: Pneumococcal Antigen Urine Not Detected (Not Detected)
== END 2023-05-31 12:35 | disposition home or self-care (01) ==
LOC: ANHED 21:48 → ANH2MED 22:55
PROVIDERS: Admitting Provider Internal Medicine; Emergency Provider Emergency Medicine; PCP Nurse Practitioner Family; Visit Provider Hospitalist
DX: J18.9 Pneumonia, unspecified organism (principal); J45.901 Unspecified asthma with (acute) exacerbation; R00.0 Tachycardia, unspecified; L40.9 Psoriasis, unspecified; G40.909 Epilepsy, unspecified, not intractable, without status epilepticus; D72.829 Elevated white blood cell count, unspecified; Z20.822 Contact with and (suspected) exposure to COVID-19; E66.9 Obesity, unspecified; Z68.39 Body mass index [BMI] 39.0-39.9, adult; Z96.82 Presence of neurostimulator; Z86.711 Personal history of pulmonary embolism; Z86.718 Personal history of other venous thrombosis and embolism; Z79.51 Long term (current) use of inhaled steroids; Z79.899 Other long term (current) drug therapy; Z84.89 Family history of other specified conditions
CPT/HCPCS: 36415; 71045; 71275; 80048; 80053; 81025; 83605; 84145; 85025; 87040; 87070; 87205; 87449; 87581; 87637; 87651; 87899; 93005; 94640; 96372; 96374; 99285; A9270; G0378; J1650; J1956; J2930; J7030; Q9967

== ENCOUNTER 2023-06-04 10:27 | Emergency (ER) | payer BC, SELFPAY ==
[2023-06-04] VITALS (10 sets, daily range): BP systolic 100–139; BP diastolic 69–98; PULSE 106–141; RESP 17–23; TEMP 36.6; O2SAT 92–100
--- NOTE | ~2023-06-04 | XR_ITS ---
EXAMINATION: XR chest 2V DATE: 06/04/2023 12:21 INDICATION: Nausea and vomiting TECHNIQUE: Frontal and lateral views of the chest are obtained COMPARISON: 05/30/2023 FINDINGS: The previously described right lower lobe airspace opacities have nearly completely resolve d. No pleural effusion or pneumothorax. The cardiomediastinal silhouette is normal. The visualized deb shelia and soft tissues are unremarkable. An electronic device is implanted in the anterior left chest w all. Its lead courses beyond the superior margin of the radiograph. IMPRESSION: 1. Near-complete interval resolution of the previously described right lower lobe pneumonia. Reviewed, dictated and finalized at location A. IMPRESSION: 1. Near-complete interval resolution of the previously described right lower lo be pneumonia.
--- NOTE | 2023-06-04 11:40 | ED.GENADULT ---
HPI - General Adult General Chief complaint: Nausea/Vomiting/Diarrhea Stated complaint: N/V Time Seen by Provider: 06/04/23 11:05 Source: patient Mode of arrival: ambulatory Limitations: no limitations History of Present Illness HPI narrative: This is a 22-year-old female who presents to the ED with chief complaint of nausea and vomiting for the past 4 days. Patient states that she was recently discharged from the hospital 5 days ago after staying for a couple of days for pneumonia. She was given antibiotics and just finished her recent course of Levaquin. She states her cough is completely better however she is still having intermittent nausea and vomiting. She states it comes on at random. It is not associated with eating. She denies any abdominal pain, urinary symptoms, chest pain, LOC. She states that she has seen some blood streaks in the vomit but states that she has been retching violently. Additionally states she has history of vagal nerve stimulator present. She has a history of epilepsy in the vagus nerve stimulator was placed for bradycardia. Related Data Home Medications Medication Instructions Recorded Confirmed carbamazepine 200 mg 200 mg PO BID 12/22/19 05/30/23 tablet,extended release,12 hr cannabidiol 100 mg/mL oral 100 mg PO BID 09/16/22 05/31/23 solution (Epidiolex) Flonase 1 spray intranasal DAILY 05/30/23 05/30/23 Zyrtec 10 mg PO DAILY 05/30/23 05/30/23 Allergies Allergy/AdvReac Type Severity Reaction Status Date / Time amoxicillin Allergy Intermediate Unknown Verified 06/04/23 11:12 Penicillins Allergy Intermediate Hives / Verified 06/04/23 11:12 Red Face clarithromycin Allergy Unknown HIVES, Verified 06/04/23 11:12 FACIAL SWELLING, WHEEZING fexofenadine [From Yee] AdvReac Intermediate Agitated Verified 06/04/23 11:12 SEASONAL Allergy Mild Unknown Uncoded 05/30/23 22:01 Review of Systems Review of Systems: All systems as dictated in [facility] Past Medical History Medical History (Updated 06/04/23 @ 14:25 by Omar Santiago PA-C) Cholesteatoma of attic, 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 With history of bilateral eye surgery Distal radius fracture, left (12/22/19) Epilepsy Psoriasis Ruptured or perforated eardrum Bilateral with the ruptured eardrum on the left being chronic Surgical History Surgical History (Updated 05/31/23 @ 02:34 by Amirah Peterson DO) History of tonsillectomy and adenoidectomy History of tympanostomy tube placement Bilateral x3 Status post VNS (vagus nerve stimulator) placement With initial placement in 2016 but she had a fractured lead and required a new device placement in 2020 Family History Family History (Updated 05/31/23 @ 03:00 by Amirah Peterson DO) Mother Type 1 diabetes mellitus Morbid obesity Grandparent Diabetes mellitus Social History Social History (Updated 05/31/23 @ 02:38 by Amirah Peterson DO) Social History: Code status: Full code Surrogate decision maker: Mother Smoking status: Never smoker Alcohol intake: never Substance use: never Lack of Transportation: No Lack of Food: Never True Current Housing: I Have Housing Concerned About Future Housing: No Difficulty Paying Gas/Electric Bills: No Difficulty Paying for Meds: No Currently Unemployed: No Education: High School Diploma/GED Difficulty w/ Childcare or Family Care: No Living arrangements: with family Additional living arrangements comments: She lives at home with her mother and father. 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 Gender identity (if verbalized by the patient): Female Spiritual care concerns: No Exam Narrative: GENERAL: Well-appearing, well-nourished, and in no acute distress. HEAD: Normocephalic, atraumatic. EYES: PERRLA and EOMI. ENT: Nares clear, no rhinorrhea or ep
[2023-06-04 12:01] LABS: Basophils Percent Auto 0.5 % (0.2-1.2); Eosinophils Absolute Auto 0.2 K/mm3 (0-0.3); Eosinophils Percent Auto 2.9 % (0-4.4); Hematocrit 49.5 % (37.0-47.0); Hemoglobin 16.2 g/dL (12.0-15.0); Immature Granulocyte Absolute 0.05 K/mm3 (0.00-0.031); Immature Granulocyte Percent A 0.6 % (0-0.5); Lymphocytes Absolute Auto 1.61 K/mm3 (0.9-3.2); Lymphocytes Percent Auto 20.5 % (18.3-44.2); Mean Corpuscular HGB Conc 32.7 g/dl (32-36); Mean Corpuscular Hemoglobin 29.5 pg (26-34); Mean Corpuscular Volume 90.2 fl (80-100); Monocytes Absolute Auto 0.6 K/mm3 (0.1-0.6); Monocytes Percent Auto 8.2 % (2.6-8.5); Neutrophils Absolute Auto 5.3 K/mm3 (1.3-6.7); Neutrophils Percent Auto 67.3 % (45.5-73.1); Platelet Count Result 335 k/mm3 (150-375); Red Blood Count 5.49 M/mm3 (4.2-5.4); Red Cell Distribution Width 12.7 % (11.5-14.5); White Blood Count 7.8 K/mm3 (4.5-10.0)
[2023-06-04] MEDS: SODIUM CHLORIDE 0.9% IV 1,000 ML 999 ML IV CONT ×2 (12:08)
[2023-06-04 12:12] LABS: Anion Gap 12 mmol/L (8-16); Appearance Urine Clear (Clear); Bacteria Urine None Seen /hpf; Bilirubin Urine Negative (Negative); Blood Urea Nitrogen 11 mg/dL (7-17); Blood Urine Negative (Negative); Carbon Dioxide 26 mmol/L (22-30); Chloride 98 mmol/L (98-107); Color Urine Dark Yellow (Yellow); Glucose Urine UA Negative (Negative); Hyaline Casts Urine Present /lpf; Ketones Urine 3+ mg/dL (Negative); Leukocyte Esterase Ur Negative LEU/UL (Negative); Need Manual Microscopic Reviewed; Nitrate Urine Negative (Negative); Protein Urine 1+ mg/dL (Negative); RBC Urine 0-2 /hpf (0-2); Sodium 136 mmol/L (137-145); Specific Grav Ur 1.028 (1.001-1.035); Squamous Epithelial Cell Urine Few /hpf (Few)
[2023-06-04 12:13] LABS: Alanine Aminotransferase 50 U/L (6-35); Albumin Level 5.1 g/dL (3.5-5.1); Alkaline Phosphatase 92 U/L (38-126); Aspartate Amino Transferase 40 U/L (14-36); Bilirubin,Total 0.9 mg/dL (0.2-1.3); Calcium 10.2 mg/dL (8.4-10.2); Estimated Glomerular Filt Rate > 60; Glucose 90 mg/dL (65-110); Lipase 53 U/L (23-300)
[2023-06-04 12:14] LABS: Add Urine Microscopic? YES
[2023-06-04] MEDS: FAMOTIDINE 20 MG/2 ML VIAL IV PUSH (13:21)
[2023-06-04] MEDS: ONDANSETRON INJ 4 MG/2 ML VIAL IV PUSH (13:21)
== END 2023-06-04 14:51 | disposition home or self-care (01) ==
PROVIDERS: Emergency Provider Physician Assistant; PCP Nurse Practitioner Family
DX: K52.9 Noninfective gastroenteritis and colitis, unspecified (principal); G40.909 Epilepsy, unspecified, not intractable, without status epilepticus; L40.9 Psoriasis, unspecified; Z96.82 Presence of neurostimulator; Z87.720 Personal history of (corrected) congenital malformations of eye; Z87.01 Personal history of pneumonia (recurrent)
CPT/HCPCS: 36415; 71046; 80053; 81001; 81025; 83690; 85025; 87086; 96361; 96374; 96375; 99284; J2405; J7030

== ENCOUNTER 2023-10-27 14:56 | Emergency (ER) | payer BC, SELFPAY ==
[2023-10-27 15:08] VITALS: BP 124/74; PULSE 105; RESP 16; TEMP 36.6; O2SAT 100
--- NOTE | 2023-10-27 15:14 | ED.URI ---
HPI - URI/Sore Throat General Chief Complaint: Upper Respiratory Infection Stated Complaint: nasal congestion,cough,fever Source: patient, RN notes reviewed and old records reviewed Mode of arrival: ambulatory Limitations: no limitations History of Present Illness HPI Narrative: [age] year presents to [facility] with complaint of dry cough, sinus congestion, fatigue,sore throat, myalgia that started Thursday and then worsened on Thursday. Patient states is having yellow/brown / bloody drainage from nose. Patient taking with no relief. Patient denies chest pain, shortness of breath weakness, dizziness. MD elicited complaint: cough and nasal congestion Onset (ago): day(s) (4) Severity: moderate Relieving factors: other ( Acetaminophen) Related Data Home Medications Medication Instructions Recorded Confirmed carbamazepine 200 mg 200 mg PO BID 12/22/19 05/30/23 tablet,extended release,12 hr cannabidiol 100 mg/mL oral 100 mg PO BID 09/16/22 05/31/23 solution (Epidiolex) Flonase 1 spray intranasal DAILY 05/30/23 05/30/23 Zyrtec 10 mg PO DAILY 05/30/23 05/30/23 Allergies Allergy/AdvReac Type Severity Reaction Status Date / Time clarithromycin AdvReac Intermediate HIVES, Verified 10/27/23 15:06 FACIAL SWELLING, WHEEZING fexofenadine [From Yee] AdvReac Intermediate Agitated Verified 10/27/23 15:06 amoxicillin AdvReac Mild Hives Verified 10/27/23 15:06 Penicillins AdvReac Mild Hives / Verified 10/27/23 15:06 Red Face SEASONAL AdvReac Mild Hives Uncoded 10/27/23 15:06 Review of Systems Constitutional: Constitutional: Reports no additional constitutional complaints, Reports body ache(s), Denies chills, Reports fatigue, Reports fever(s) and Denies headache(s) Eyes: Eyes: Reports no additional eye complaints and Denies blurry vision ENT: Reports system reviewed and no additional complaints, except as documented, Denies vertigo, Denies dizziness, Denies ear discharge, Denies otalgia, Denies facial pain, Denies headache(s), Reports nasal congestion, Reports nasal discharge, Denies sinus pain, Reports sinus pressure and Reports sore throat Cardiovascular: Cardiovascular: Reports no additional cardiovascular complaints, Denies chest pain, Denies chest pain at rest, Denies rapid heart rate and Denies dyspnea Respiratory: Respiratory: Reports no additional respiratory complaints, Denies chest congestion, Reports cough, Denies pain on inspiration, Denies pain with cough and Denies dyspnea Gastrointestinal: Gastrointestinal: Denies abdominal pain, Denies diarrhea, Denies nausea and Denies vomiting Integumentary/Breasts: Skin/Breast: Denies rash Neurologic: Reports system reviewed and no additional complaints, except as documented, Denies vertigo, Denies dizziness and Denies headache(s) Endocrine: Endocrine: Reports fatigue PMFSH Past Medical History Medical History Cholesteatoma of attic, 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 With history of bilateral eye surgery Distal radius fracture, left (12/22/19) Epilepsy Psoriasis Ruptured or perforated eardrum Bilateral with the ruptured eardrum on the left being chronic Surgical History Surgical History History of tonsillectomy and adenoidectomy History of tympanostomy tube placement Bilateral x3 Status post VNS (vagus nerve stimulator) placement With initial placement in 2017 but she had a fractured lead and required a new device placement in 2020 Family History Family History Mother Type 1 diabetes mellitus Morbid obesity Grandparent Diabetes mellitus Social History Social History Social History: Code status: Full code Surrogate decision maker: Mother Smoking status: Never smoker Alc
== END 2023-10-27 15:40 | disposition home or self-care (01) ==
PROVIDERS: Emergency Provider Registered Nurse; PCP Nurse Practitioner Family
DX: J06.9 Acute upper respiratory infection, unspecified (principal); Z20.822 Contact with and (suspected) exposure to COVID-19; G40.909 Epilepsy, unspecified, not intractable, without status epilepticus; L40.9 Psoriasis, unspecified
CPT/HCPCS: 87081; 87426; 87804; 87880; 99213; G0463

== ENCOUNTER 2024-02-04 13:54 | Emergency (ER) | payer BC, SELFPAY ==
--- NOTE | 2024-02-04 14:02 | ED.URI ---
HPI - URI/Sore Throat General Chief Complaint: Upper Respiratory Infection Stated Complaint: Fever, cough, congestion Time Seen by Provider: 02/04/24 14:02 Source: patient Mode of arrival: ambulatory Limitations: no limitations History of Present Illness HPI Narrative: Aftab is a 23-year-old female patient presenting to the clinic today with complaints of fever, cough, and congestion x2 days. 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 Temperature was 99.4 ? F at work and she was sent home. She took Mucinex for the congestion. MD elicited complaint: sore throat and nasal congestion Related Data Home Medications Medication Instructions Recorded Confirmed cannabidiol 100 mg/mL oral 100 mg PO QID 10/27/23 02/04/24 solution (Epidiolex) carbamazepine 200 mg 200 mg PO QID 10/27/23 02/04/24 tablet,extended release,12 hr midazolam 5 mg/spray (0.1 mL) 1 spray intranasal PRN PRN Seizures 02/04/24 02/04/24 nasal spray (Nayzilam) Allergies Allergy/AdvReac Type Severity Reaction Status Date / Time clarithromycin AdvReac Intermediate HIVES, Verified 02/04/24 14:09 FACIAL SWELLING, WHEEZING fexofenadine [From Yee] AdvReac Intermediate Agitated Verified 02/04/24 14:09 amoxicillin AdvReac Mild Hives Verified 02/04/24 14:09 Penicillins AdvReac Mild Hives / Verified 02/04/24 14:09 Red Face SEASONAL AdvReac Mild Hives Uncoded 02/04/24 14:09 Review of Systems Review of Systems: Pertinent positives per HPI. Patient denies any rash, headache, visual changes, dizziness, shortness of breath, chest pain, palpitations, nausea, vomiting, diarrhea, constipation, abdominal pain, or any urinary issues. 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 With history of bilateral eye surgery Distal radius fracture, left (12/22/19) Epilepsy Psoriasis Ruptured or perforated eardrum Bilateral with the ruptured eardrum on the left being chronic Surgical History Surgical History History of tonsillectomy and adenoidectomy History of tympanostomy tube placement Bilateral x3 Status post VNS (vagus nerve stimulator) placement With initial placement in 2016 but she had a fractured lead and required a new device placement in 2020 Family History Family History Mother Type 1 diabetes mellitus Morbid obesity Grandparent Diabetes mellitus Social History Social History Social History: Code status: Full code Surrogate decision maker: Mother Smoking status: Never smoker Alcohol intake: never Substance use: never Lack of Transportation: No Lack of Food: Never True Current Housing: I Have Housing Concerned About Future Housing: No Difficulty Paying Gas/Electric Bills: No Difficulty Paying for Meds: No Currently Unemployed: No Education: High School Diploma/GED Difficulty w/ Childcare or Family Care: No Living arrangements: with family Additional living arrangements comments: She lives at home with her mother and father. 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 Gender identity (if verbalized by the patient): Female Spiritual care concerns: No Comments At the time of my signature, I reviewed and agree with the nursing past medical, surgical, social, and family history. There is no relevant family history pertinent to the patient complaint. Exam Narrative: General: Well-developed, well nourished, in no apparent distress Head: Normocephalic, atraumatic Eyes: Pupils equally round and reactive to light bilaterally, EOM intact, sclera and conjunctive clear, no discharge, lids normal Ears: TMs
[2024-02-04 14:11] VITALS: BP 134/87; PULSE 105; RESP 18; TEMP 36.7; O2SAT 98
== END 2024-02-04 14:37 | disposition home or self-care (01) ==
PROVIDERS: Emergency Provider Nurse Practitioner Family; PCP Family Medicine
DX: J06.9 Acute upper respiratory infection, unspecified (principal); Z20.822 Contact with and (suspected) exposure to COVID-19; G40.909 Epilepsy, unspecified, not intractable, without status epilepticus; L40.9 Psoriasis, unspecified
CPT/HCPCS: 87426; 87804; 99213; G0463